=== PATIENT | male | born 1995 | race African-American/Black ===

== ENCOUNTER 2022-11-04 14:31 | Inpatient (IN) | payer MEDICAID, OTHER ==
[~2022-11-04] VITALS: Ht 190.5 cm; Wt 71.5 kg
[2022-11-04 15:25] LABS: Urine Bacteria FEW /hpf (None Seen); Urine Blood Negative /uL (Negative); Urine Mucus FEW (None Seen); Urine Specific Gravity 1.026 (1.001-1.035); Urine Sperm PRESENT /hpf (None Seen); Urine WBC 2 /hpf (0 - 3)
[2022-11-04 15:37] LABS: Basophils # (auto) 0.1 10 ^3/uL (0-0.2); Basophils % (auto) 0.5 % (0.0-2.0); Eosinophils # (auto) 0.1 10 ^3/uL (0-0.8); Hematocrit 45.1 % (41.0-53.0); Hemoglobin 15.5 g/dL (13.5-17.5); Lymphocytes # (auto) 1.7 10 ^3/uL (0.4-5.4); Lymphocytes % (auto) 13.4 % (10.0-50.0); Mean Corpuscular Hemoglobin 31.3 pg (28.0-32.0); Mean Corpuscular Hgb Conc. 34.4 g/dL (32.0-36.0); Mean Corpuscular Volume 90.9 fL (80.0-100.0); Monocytes # (auto) 0.7 10 ^3/uL (0-1.3); Monocytes % (auto) 5.3 % (0.0-12.0); Neutrophils # (auto) 10.5 10 ^3/uL (1.6-8.6); Neutrophils % (auto) 79.8 % (37.0-80.0); Red Blood Cells 4.96 10^6/uL (4.5-5.90); Red Cell Distribution Width 13.5 % (11.8-14.3); White Blood Cell 13.1 10^3/uL (4.4-10.8)
[2022-11-04 15:53] LABS: Albumin 4.3 g/dL (3.4-5.0); Calcium 8.8 mg/dL (8.5-10.1); Potassium 4.9 mmol/L (3.5-5.1)
[2022-11-04 15:56] LABS: BUN/Creatinine Ratio 10.9; Bilirubin, Total 0.5 mg/dL (0.2-1.0); Total Protein 7.6 g/dL (6.4-8.2)
[2022-11-04] MEDS ORDERED: LIDOCAINE 1% HCL (LOCAL ANESTH.) INJ 20ML MDV ONE (16:13)
[2022-11-04] MEDS ORDERED: LIDOCAINE 1% HCL (LOCAL ANESTH.) INJ 20ML MDV ID ONE (16:45)
[2022-11-04] MEDS ORDERED: ACETAMINOPHEN 325 MG TAB PO PRN (17:00)
[2022-11-04] MEDS ORDERED: ONDANSETRON HCL 4 MG/2 ML VIAL IV ONE (17:00)
[2022-11-04] MEDS ORDERED: MORPHINE SULFATE INJ 2 MG/ml SYRG IV ONE (17:00)
[2022-11-04] MEDS: SODIUM CHLORIDE 0.9% 1,000 ML IV SCH (17:50)
[2022-11-04 19:08] LABS: Amphetamine Screen, Urine NEGATIVE (NEGATIVE); Barbiturate Scree,Urine NEGATIVE (NEGATIVE); Benzodiazephine Screen, Urine NEGATIVE (NEGATIVE); Cannabinoid Screen, Urine POSITIVE (NEGATIVE); Cocaine Screen, Urine NEGATIVE (NEGATIVE)
[2022-11-04 19:15] LABS: Opiate Scree,Urine NEGATIVE (NEGATIVE); Phencyclidine Screen, Urine NEGATIVE (NEGATIVE)
[2022-11-04] MEDS: HYDROcodone-ACET 5/325MG TAB PO PRN (21:12)
[2022-11-05] VITALS (7 sets, daily range): BP systolic 103–128; BP diastolic 57–85
[2022-11-05] MEDS: SODIUM CHLORIDE 0.9% 1,000 ML IV SCH (01:39)
[2022-11-05 05:58] LABS: Basophils # (auto) 0 10 ^3/uL (0-0.2); Basophils % (auto) 0.3 % (0.0-2.0); Eosinophils # (auto) 0.1 10 ^3/uL (0-0.8); Eosinophils % (auto) 0.8 % (0.0-7.0); Hematocrit 41.4 % (41.0-53.0); Hemoglobin 13.7 g/dL (13.5-17.5); Lymphocytes # (auto) 3.4 10 ^3/uL (0.4-5.4); Lymphocytes % (auto) 28.7 % (10.0-50.0); Mean Corpuscular Hemoglobin 29.9 pg (28.0-32.0); Mean Corpuscular Hgb Conc. 33.1 g/dL (32.0-36.0); Mean Corpuscular Volume 90.5 fL (80.0-100.0); Monocytes # (auto) 0.8 10 ^3/uL (0-1.3); Neutrophils # (auto) 7.5 10 ^3/uL (1.6-8.6); Neutrophils % (auto) 63.2 % (37.0-80.0); Nucleated Red Blood Cells % 0.1 %; Red Blood Cells 4.58 10^6/uL (4.5-5.90); Red Cell Distribution Width 13.5 % (11.8-14.3); White Blood Cell 11.9 10^3/uL (4.4-10.8)
[2022-11-05 06:15] LABS: Albumin 3.5 g/dL (3.4-5.0); Calcium 8.5 mg/dL (8.5-10.1); Potassium 4.1 mmol/L (3.5-5.1)
[2022-11-05 06:20] LABS: Bilirubin, Total 0.8 mg/dL (0.2-1.0); Total Protein 6.4 g/dL (6.4-8.2)
[2022-11-05] MEDS: HYDROcodone-ACET 5/325MG TAB PO PRN (18:10)
[2022-11-06] VITALS (7 sets, daily range): BP systolic 115–130; BP diastolic 67–74
[2022-11-06] MEDS: HYDROcodone-ACET 5/325MG TAB PO PRN (10:11)
[2022-11-07 05:00] VITALS: BP 118/77
[2022-11-07 09:00] VITALS: BP 116/79
[2022-11-07 12:47] VITALS: BP 118/77
[2022-11-07] MEDS: HYDROcodone-ACET 5/325MG TAB PO PRN (16:09)
[2022-11-07 16:43] VITALS: BP 123/74
[2022-11-07 22:00] VITALS: BP 130/70
[2022-11-08 05:00] VITALS: BP 115/79
[2022-11-08 09:00] VITALS: BP 116/70
[2022-11-08 13:00] VITALS: BP 118/79
[2022-11-08 16:51] VITALS: BP 114/70
[2022-11-08 22:00] VITALS: BP 113/59
[2022-11-08] MEDS: HYDROcodone-ACET 5/325MG TAB PO PRN (22:36)
[2022-11-09 05:00] VITALS: BP 115/65
[2022-11-09 09:00] VITALS: BP 120/76
[2022-11-09 13:24] VITALS: BP 124/77
[2022-11-09] MEDS ORDERED: ACET325T10 PO (15:12)
[2022-11-09 15:43] VITALS: BP 124/77
== END 2022-11-09 17:00 | disposition home or self-care (01) | DRG 200 ==
LOC: ER 14:31 → OVERFLOW 16:58 → CENTRAL 11-05 01:25
PROVIDERS: ADMIT Nurse Practitioner Family; ATTEND Internal Medicine Pulmonary Disease
PROC: 0W9B30Z Drainage of Left Pleural Cavity with Drainage Device, Percutaneous Approach (ICD-10-PCS; principal; 2022-11-04)
DX: J93.11 Primary spontaneous pneumothorax (principal); J98.11 Atelectasis; F17.290 Nicotine dependence, other tobacco product, uncomplicated; Z20.822 Contact with and (suspected) exposure to COVID-19; R73.9 Hyperglycemia, unspecified; F12.90 Cannabis use, unspecified, uncomplicated
CPT/HCPCS: 36415; 71045; 71250; 80053; 80307; 81001; 81025; 83036; 83880; 84484; 85025; 85379; 87426; 87804; 93005; 96361; 96374; 96375; G0378; J2001; J2405